=== PATIENT | male | born 1955 | race Caucasian/White ===

== ENCOUNTER 2021-02-25 12:43 | Emergency (ER) | payer MEDICARE ==
--- NOTE | 2021-02-25 13:33 | EDM.PDOC ---
ED HPI GENERAL MEDICAL PROBLEM - General Chief Complaint: Respiratory Problem Stated Complaint: SOB Time Seen by Provider: 02/25/21 12:53 Source of Information: Reports: Patient History Limitations: Reports: No Limitations - History of Present Illness INITIAL COMMENTS - FREE TEXT/NARRATIVE: 65-year-old male presents the emergency department today requesting of a refill of his albuterol rescue inhaler. Patient recently moved here from [facility]. Significant history of COPD and is oxygen dependent on 4 L per nasal cannula. He states he is set up to see Dr. Boateng the clinic 2 days from now however due to the fact that he has not seen him yet as a provider he is unable to have Dr. Boateng fill his albuterol prescription. Patient denies any recent fever, chills, nausea, vomiting or diarrhea. He denies any other respiratory symptoms such as cough or sore throat. 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 Respiratory History: Reports: COPD Other Respiratory History: stage 3 Musculoskeletal History: Reports: Arthritis, Back Pain, Chronic, Osteoarthritis, Osteoporosis Psychiatric History: Reports: Anxiety, Depression Endocrine/Metabolic History: Reports: Diabetes, Type II - Infectious Disease History Infectious Disease History: Reports: C-Difficile, Measles, Mumps - Past Surgical History GI Surgical History: Reports: Appendectomy, Colonoscopy Social & Family History - Tobacco Use Tobacco Use Status *Q: Former Tobacco User Used Tobacco, but Quit: Yes Month/Year Tobacco Last Used: 2017 - Caffeine Use Caffeine Use: Reports: Coffee - Recreational Drug Use Recreational Drug Use: No ED ROS GENERAL - Review of Systems Review Of Systems: Comprehensive ROS is negative, except as noted in HPI. ED EXAM, GENERAL - Physical Exam Exam: See Below Exam Limited By: No Limitations General Appearance: Alert, WD/WN, No Apparent Distress Ears: Normal External Exam, Hearing Grossly Normal Nose: Normal Inspection Throat/Mouth: Normal Inspection, Normal Lips, Normal Voice, No Airway Compromise Head: Atraumatic, Normocephalic Neck: Normal Inspection, Supple Respiratory/Chest: No Respiratory Distress, Lungs Clear, Normal Breath Sounds, No Accessory Muscle Use, Chest Non-Tender Cardiovascular: Normal Peripheral Pulses, Regular Rate, Rhythm, No Edema, No Murmur Peripheral Pulses: 2+: Radial (L), Radial (R) GI/Abdominal: Normal Bowel Sounds, Soft, Non-Tender, No Distention (Male) Exam: Deferred Rectal (Males) Exam: Deferred Back Exam: CVA Tenderness (R) Extremities: Normal Inspection Neurological: Alert, Oriented, Normal Cognition Psychiatric: Normal Affect, Normal Mood Skin Exam: Warm, Dry, Intact, Normal Color, No Rash Lymphatic: No Adenopathy Course - Vital Signs Text/Narrative:: As stated above, patient presents requesting a refill of his albuterol rescue inhaler. Physical exam is essentially unremarkable. He is currently on oxygen at 4 L per nasal cannula with O2 saturations at 98%. Will refill patient's albuterol nebulizer and sent a prescription electronically. Last Recorded V/S: Last Vital Signs Temp 97.8 F 02/25/21 13:09 Pulse 80 02/25/21 13:09 Resp 20 02/25/21 13:09 BP 112/68 02/25/21 13:09 Pulse Ox 98 02/25/21 13:09 Departure - Departure Time of Disposition: 13:31 Disposition: Home, Self-Care 01 Condition: Good Clinical Impression: Encounter for medication refill - Discharge Information Prescriptions: Albuterol [Ventolin HFA] 1 puff INH QID #1 gm Referrals: Urban Wharton MD [Primary Care Provider] - Additional Instructions: You were seen in the emergency department today requesting a refill of your albuterol rescue inhaler. A prescription has been sent to [facility] for refill of this prescription. Follow-up with Dr. Boateng as scheduled. Sepsis Event Note (ED) - Focused Exam Vital Signs: Vital Signs Temp Pulse Resp BP Pulse Ox 02/25/21 13:09 97.8 F 80 20 112/68 98
== END 2021-02-25 13:43 | disposition home or self-care (01) ==
LOC: JD.ED 12:43
DX: J44.9 Chronic obstructive pulmonary disease, unspecified (principal); Z76.0 Encounter for issue of repeat prescription; I10 Essential (primary) hypertension; I48.92 Unspecified atrial flutter; E11.9 Type 2 diabetes mellitus without complications; Z87.891 Personal history of nicotine dependence; Z88.8 Allergy status to other drugs, medicaments and biological substances; Z79.899 Other long term (current) drug therapy
CPT/HCPCS: 99281; 99283

== ENCOUNTER 2021-08-06 21:11 | Emergency (ER) | payer MEDICARE, OTHER ==
[2021-08-06] MEDS ORDERED: methylPREDNISolone Sodium Succinate 125 MG/2 ML SDV IVPUSH ONE (22:00)
[2021-08-06] MEDS ORDERED: Albuterol/Ipratropium 3.0-0.5 MG/3 ML Neb Soln NEB ONE ×2 (22:00→23:09)
[2021-08-06] MEDS ORDERED: Magnesium Sulfate/Water 2 GM in Premix Bag 1 BAG IV ONE (23:09)
== END 2021-08-07 01:38 | disposition home or self-care (01) ==
LOC: JD.ED 21:11
DX: J44.1 Chronic obstructive pulmonary disease with (acute) exacerbation (principal); I48.91 Unspecified atrial fibrillation; J96.01 Acute respiratory failure with hypoxia; E83.42 Hypomagnesemia; I10 Essential (primary) hypertension; E11.9 Type 2 diabetes mellitus without complications; Z88.1 Allergy status to other antibiotic agents
CPT/HCPCS: 36415; 71045; 80053; 83735; 85025; 85610; 93005; 94640; 96365; 96366; 96375; 99285; J2930; J3475; 93010; 99291; J7620-GY

== ENCOUNTER 2021-08-07 21:16 | Inpatient (IN) | payer MEDICARE, OTHER ==
[2021-08-07] MEDS ORDERED: Sodium Chloride 0.9% 1,000 ML IV ONE (22:11)
[2021-08-07] MEDS ORDERED: Cefepime 2 GM in Sodium Chloride 0.9% 50 ML IV ONE (22:12)
[2021-08-07] MEDS ORDERED: Sodium Chloride 0.9% 50 ML ONE (22:37)
[2021-08-07] MEDS ORDERED: Cefepime 2 GM Vial ONE (22:37)
[2021-08-07] MEDS ORDERED: Furosemide 40 MG/4 ML VIAL IVPUSH ONE (22:45)
[2021-08-08] MEDS ORDERED: Warfarin 5 MG Tab PO ONE (01:16)
[2021-08-08] MEDS ORDERED: predniSONE 20 MG Tab PO ONE (01:16)
[2021-08-08] MEDS ORDERED: metFORMIN 500 MG Tab PO ONE (01:20)
[2021-08-08] MEDS ORDERED: Cefepime 2 GM in Sodium Chloride 0.9% 50 ML IV ONE (06:00)
[2021-08-08] MEDS ORDERED: Sodium Chloride 0.9% 50 ML ONE (06:02)
[2021-08-08] MEDS ORDERED: Morphine 2 MG/ML SYRINGE IVPUSH PRN (06:36)
[2021-08-08] MEDS ORDERED: Temazepam 7.5 MG Cap PO PRN (06:36)
[2021-08-08] MEDS ORDERED: oxyCODONE 5 MG Tab PO PRN (06:36)
[2021-08-08] MEDS ORDERED: Docusate Sodium 100 MG Cap PO PRN (06:36)
[2021-08-08] MEDS ORDERED: Heparin Sodium 5,000 Units/ML Vial SUBCUT SCH (06:45)
[2021-08-08] MEDS ORDERED: predniSONE 20 MG Tab PO SCH (07:00)
[2021-08-08 08:05] LABS: HEMOGLOBIN A1C 5.8 %
[2021-08-08] MEDS: cefTRIAXone 2 GM in Sodium Chloride 0.9% 100 ML IV SCH (08:52)
[2021-08-08] MEDS: Potassium Bicarbonate/Cit Ac 20 MEQ Effervescent Tab PO SCH (08:57)
[2021-08-08] MEDS ORDERED: Insulin Regular, Human 100 Units/ML 3 ML Vial SUBCUT SCH (09:00)
[2021-08-08] MEDS: Gabapentin 300 MG Cap PO SCH ×3 (09:00→21:31)
[2021-08-08] MEDS: cloNIDine 0.1 MG Tab PO SCH (09:01)
[2021-08-08] MEDS: Chlorthalidone 25 MG Tab PO SCH (09:01)
[2021-08-08] MEDS: Diltiazem 240 MG Cap.ER PO SCH (09:02)
[2021-08-08] MEDS: predniSONE 20 MG Tab PO SCH ×2 (09:03→16:53)
[2021-08-08] MEDS: Fluticasone NASAL Spray 16 GM Bottle NASBOTH SCH (09:07)
[2021-08-08] MEDS ORDERED: Albuterol/Ipratropium 3.0-0.5 MG/3 ML Neb Soln NEB PRN (12:00)
[2021-08-08] MEDS: Tiotropium Bromide 4 GM Inhalation Spray (2.5mcg/1 dose; 10 doses) INH SCH (12:26)
[2021-08-08] MEDS: Formoterol/Mometasone 200-5 MCG 8.8 GM Inhaler IH SCH ×2 (12:26→20:49)
[2021-08-08] MEDS: guaiFENesin 600 MG Tab.ER PO SCH ×2 (15:53→21:31)
[2021-08-08] MEDS ORDERED: ALPRAZolam 0.5 MG Tab PO ONE (16:30)
[2021-08-08] MEDS: metFORMIN 500 MG Tab PO SCH (16:53)
[2021-08-08] MEDS: Albuterol/Ipratropium 3.0-0.5 MG/3 ML Neb Soln NEB PRN ×2 (17:48→20:52)
[2021-08-08] MEDS: Warfarin 5 MG Tab PO SCH (19:07)
[2021-08-09] MEDS: Albuterol/Ipratropium 3.0-0.5 MG/3 ML Neb Soln NEB PRN (09:00)
[2021-08-09] MEDS: Tiotropium Bromide 4 GM Inhalation Spray (2.5mcg/1 dose; 10 doses) INH SCH (09:00)
[2021-08-09] MEDS: Formoterol/Mometasone 200-5 MCG 8.8 GM Inhaler IH SCH ×2 (09:01→21:23)
[2021-08-09] MEDS: LORazepam 1 MG Tab PO PRN ×2 (09:14→20:39)
[2021-08-09] MEDS: Acetylcysteine 20% 200 MG/ML 4 ML Nebulizer Soln SDV NEB SCH ×2 (09:23→17:24)
[2021-08-09] MEDS: cefTRIAXone 2 GM in Sodium Chloride 0.9% 100 ML IV SCH (09:52)
[2021-08-09] MEDS: guaiFENesin 600 MG Tab.ER PO SCH ×3 (09:53→20:39)
[2021-08-09] MEDS: Diltiazem 240 MG Cap.ER PO SCH (09:53)
[2021-08-09] MEDS: cloNIDine 0.1 MG Tab PO SCH (09:53)
[2021-08-09] MEDS: Chlorthalidone 25 MG Tab PO SCH (09:53)
[2021-08-09] MEDS: predniSONE 20 MG Tab PO SCH ×2 (09:53→18:17)
[2021-08-09] MEDS: Potassium Bicarbonate/Cit Ac 20 MEQ Effervescent Tab PO SCH (09:53)
[2021-08-09] MEDS: Gabapentin 300 MG Cap PO SCH ×3 (09:53→20:39)
[2021-08-09] MEDS: Fluticasone NASAL Spray 16 GM Bottle NASBOTH SCH (09:54)
[2021-08-09] MEDS: Levalbuterol HCl 1.25 MG/3 ML Neb NEB SCH ×3 (13:24→21:21)
[2021-08-09] MEDS: Warfarin 5 MG Tab PO SCH (18:16)
[2021-08-09] MEDS: metFORMIN 500 MG Tab PO SCH (18:16)
[2021-08-10] MEDS: Levalbuterol HCl 1.25 MG/3 ML Neb NEB SCH ×6 (02:19→21:22)
[2021-08-10] MEDS: Acetylcysteine 20% 200 MG/ML 4 ML Nebulizer Soln SDV NEB SCH ×2 (05:49→17:36)
[2021-08-10] MEDS: predniSONE 20 MG Tab PO SCH ×2 (06:29→18:12)
[2021-08-10] MEDS: cefTRIAXone 2 GM in Sodium Chloride 0.9% 100 ML IV SCH (09:08)
[2021-08-10] MEDS: Chlorthalidone 25 MG Tab PO SCH (09:09)
[2021-08-10] MEDS: cloNIDine 0.1 MG Tab PO SCH (09:10)
[2021-08-10] MEDS: Gabapentin 300 MG Cap PO SCH ×3 (09:10→20:08)
[2021-08-10] MEDS: Potassium Bicarbonate/Cit Ac 20 MEQ Effervescent Tab PO SCH (09:10)
[2021-08-10] MEDS: guaiFENesin 600 MG Tab.ER PO SCH ×3 (09:12→20:08)
[2021-08-10] MEDS: Fluticasone NASAL Spray 16 GM Bottle NASBOTH SCH (09:12)
[2021-08-10] MEDS: Diltiazem 240 MG Cap.ER PO SCH (09:12)
[2021-08-10] MEDS: LORazepam 1 MG Tab PO PRN ×2 (09:29→20:07)
[2021-08-10] MEDS: Formoterol/Mometasone 200-5 MCG 8.8 GM Inhaler IH SCH ×2 (09:47→21:22)
[2021-08-10] MEDS: Tiotropium Bromide 4 GM Inhalation Spray (2.5mcg/1 dose; 10 doses) INH SCH (09:47)
[2021-08-10] MEDS: metFORMIN 500 MG Tab PO SCH (18:12)
[2021-08-10] MEDS: Warfarin 5 MG Tab PO SCH (18:15)
[2021-08-11] MEDS: Levalbuterol HCl 1.25 MG/3 ML Neb NEB SCH ×4 (01:59→14:32)
[2021-08-11] MEDS: Acetylcysteine 20% 200 MG/ML 4 ML Nebulizer Soln SDV NEB SCH (06:20)
[2021-08-11] MEDS: predniSONE 20 MG Tab PO SCH ×2 (06:55→18:10)
[2021-08-11] MEDS: Potassium Bicarbonate/Cit Ac 20 MEQ Effervescent Tab PO SCH (08:15)
[2021-08-11] MEDS: cefTRIAXone 2 GM in Sodium Chloride 0.9% 100 ML IV SCH (08:16)
[2021-08-11] MEDS: guaiFENesin 600 MG Tab.ER PO SCH ×2 (08:18→14:55)
[2021-08-11] MEDS: Gabapentin 300 MG Cap PO SCH ×2 (08:18→14:55)
[2021-08-11] MEDS: Diltiazem 240 MG Cap.ER PO SCH (08:18)
[2021-08-11] MEDS: Chlorthalidone 25 MG Tab PO SCH (08:18)
[2021-08-11] MEDS: LORazepam 1 MG Tab PO PRN (08:27)
[2021-08-11] MEDS: cloNIDine 0.1 MG Tab PO SCH (08:29)
[2021-08-11] MEDS: Formoterol/Mometasone 200-5 MCG 8.8 GM Inhaler IH SCH (09:30)
[2021-08-11] MEDS: Tiotropium Bromide 4 GM Inhalation Spray (2.5mcg/1 dose; 10 doses) INH SCH (09:30)
[2021-08-11] MEDS ORDERED: Diltiazem 120 MG Cap.CD PO ONE (09:46)
[2021-08-11] MEDS: Fluticasone NASAL Spray 16 GM Bottle NASBOTH SCH (09:57)
[2021-08-11] MEDS: metFORMIN 500 MG Tab PO SCH (18:10)
== END 2021-08-11 16:50 | disposition home or self-care (01) | DRG 193 ==
LOC: JD.ED 21:16 → JD.MS 23:06
PROVIDERS: ADMIT Internal Medicine; ATTEND Internal Medicine
DX: J18.9 Pneumonia, unspecified organism (principal); J96.21 Acute and chronic respiratory failure with hypoxia; J44.0 Chronic obstructive pulmonary disease with (acute) lower respiratory infection; R00.2 Palpitations; I48.91 Unspecified atrial fibrillation; I48.21 Permanent atrial fibrillation; J44.1 Chronic obstructive pulmonary disease with (acute) exacerbation; I10 Essential (primary) hypertension; G47.30 Sleep apnea, unspecified; F41.9 Anxiety disorder, unspecified; G89.29 Other chronic pain; M54.9 Dorsalgia, unspecified; I48.92 Unspecified atrial flutter; M81.0 Age-related osteoporosis without current pathological fracture; M19.90 Unspecified osteoarthritis, unspecified site; Z20.822 Contact with and (suspected) exposure to COVID-19; F32.A Depression, unspecified; F43.10 Post-traumatic stress disorder, unspecified; E66.9 Obesity, unspecified; F41.8 Other specified anxiety disorders; E11.9 Type 2 diabetes mellitus without complications; Z88.1 Allergy status to other antibiotic agents; Z90.49 Acquired absence of other specified parts of digestive tract; Z98.49 Cataract extraction status, unspecified eye; Z87.891 Personal history of nicotine dependence; Z79.01 Long term (current) use of anticoagulants; Z79.52 Long term (current) use of systemic steroids; Z79.899 Other long term (current) drug therapy; Z79.4 Long term (current) use of insulin; Z68.29 Body mass index [BMI] 29.0-29.9, adult
CPT/HCPCS: 36415; 71045; 80053; 83605; 83735; 83880; 84484; 85025; 87040 ×2; 93005; 96374; 99285; J0692; J7030; U0002; 82947; 83036; 85610; 94640; 94660; 94667; 94668; 94761; 99222; 99232; A9270-GY; J0696; J1815-GY; J1940; J7512; J7612-GY; J7620-GY

== ENCOUNTER 2021-08-30 21:29 | Emergency (ER) | payer MEDICARE, OTHER ==
[2021-08-30] MEDS ORDERED: Diltiazem 50 MG/10 ML SDV IVPUSH STA (22:07)
[2021-08-30] MEDS ORDERED: Diltiazem 100 MG in Sodium Chloride 0.9% 100 ML IV SCH (22:15)
[2021-08-30] MEDS ORDERED: Warfarin 7.5 MG Tab PO ONE (22:48)
[2021-08-31] MEDS ORDERED: Diltiazem 100 MG in Sodium Chloride 0.9% 100 ML IV SCH (06:45)
[2021-08-31] MEDS ORDERED: LORazepam 0.5 MG Tab PO ONE (07:35)
== END 2021-08-31 08:44 ==
LOC: JD.ED 21:29
DX: I48.91 Unspecified atrial fibrillation (principal); D68.8 Other specified coagulation defects; J44.9 Chronic obstructive pulmonary disease, unspecified; I10 Essential (primary) hypertension; E11.9 Type 2 diabetes mellitus without complications; E66.9 Obesity, unspecified; Z68.30 Body mass index [BMI] 30.0-30.9, adult; Z87.891 Personal history of nicotine dependence; Z90.49 Acquired absence of other specified parts of digestive tract; Z79.899 Other long term (current) drug therapy; Z79.01 Long term (current) use of anticoagulants; Z79.84 Long term (current) use of oral hypoglycemic drugs; Z88.1 Allergy status to other antibiotic agents
CPT/HCPCS: 36415; 71045; 80053; 83735; 83880; 84443; 85025; 85610; 93005; 94660; 96365; 96366; 99285; A9270; J3490; 93010; 99284

== ENCOUNTER 2022-11-28 13:58 | Emergency (ER) | payer MEDICARE, OTHER ==
[2022-11-28 14:52] LABS: BASOPHILS ABSOLUTE AUTO 0.05 K/mm3 (0.01-0.08); BASOPHILS PERCENT AUTO 0.5 % (0.1-1.2); HEMATOCRIT 39.2 % (40.1-51.0); HEMOGLOBIN 12.8 gm/dl (13.7-17.5); IMMATURE GRAN ABSOLUTE AUTO 0.03 K/mm3 (0.00-0.10); IMMATURE GRAN PERCENT AUTO 0.3 % (<=1.0); LYMPHOCYTES ABSOLUTE AUTO 2.54 K/mm3 (1.32-3.57); LYMPHOCYTES PERCENT AUTO 23.1 % (21.8-53.1); MEAN CORPUSCULAR HGB CONC 32.7 g/dl (32.2-35.5); MEAN PLATELET VOLUME 10.9 fl (9.4-12.3); MONOCYTES ABSOLUTE AUTO 0.73 K/mm3 (0.30-0.82); MONOCYTES PERCENT AUTO 6.6 % (5.3-12.2); NEUTROPHILS ABSOLUTE AUTO 6.56 K/mm3 (1.78-5.38); NEUTROPHILS PERCENT AUTO 59.5 % (34.0-67.9); PLATELET COUNT,PLT 200 K/mm3 (163-337); WHITE BLOOD CELL COUNT,WBC 11.01 K/mm3 (4.23-9.07)
[2022-11-28 15:43] LABS: A/G RATIO 0.8 (1-2); ALBUMIN 3.3 g/dl (3.4-5.0); ANION GAP 13.9 (5-15); BILIRUBIN TOTAL 0.4 mg/dL (0.2-1.0); BUN/CREATININE RATIO 13.6 (14-18); CALCIUM 8.5 mg/dL (8.5-10.1); CREATININE 1.1 mg/dL (0.7-1.3); EST CRCL DRUG DOSING (CG) 2.35 mL/min; POTASSIUM,K 3.9 mEq/L (3.5-5.1); PROTEIN TOTAL,TP 7.6 g/dl (6.4-8.2)
== END 2022-11-28 16:38 | disposition home or self-care (01) ==
LOC: JD.ED 13:58
DX: S61.402A Unspecified open wound of left hand, initial encounter (principal); I48.91 Unspecified atrial fibrillation; I10 Essential (primary) hypertension; E11.9 Type 2 diabetes mellitus without complications; E66.9 Obesity, unspecified; Z88.1 Allergy status to other antibiotic agents; Z68.1 Body mass index [BMI] 19.9 or less, adult; Z79.01 Long term (current) use of anticoagulants; Z79.84 Long term (current) use of oral hypoglycemic drugs; W18.09XA Striking against other object with subsequent fall, initial encounter
CPT/HCPCS: 36415; 70450; 70450-26; 80053; 84484; 85025; 93005; 93010; 99283; 99284

== ENCOUNTER 2023-08-01 18:41 | Emergency (ER) | payer MEDICARE, OTHER ==
[2023-08-01] MEDS: HYDROmorphone 0.5 MG/0.5 ML Syringe IVPUSH ONE ×3 (19:14→21:34)
[2023-08-01] MEDS: Sodium Chloride 0.9% 10 ML Syringe FLUSH PRN (19:15)
[2023-08-01] MEDS: Ondansetron 4 MG Tab.DIS PO ONE (21:59)
== END 2023-08-01 22:00 | disposition home or self-care (01) ==
LOC: JD.ED 18:41
DX: S42.201A Unspecified fracture of upper end of right humerus, initial encounter for closed fracture (principal); J44.9 Chronic obstructive pulmonary disease, unspecified; I10 Essential (primary) hypertension; I48.91 Unspecified atrial fibrillation; E11.9 Type 2 diabetes mellitus without complications; E66.9 Obesity, unspecified; Z79.899 Other long term (current) drug therapy; Z79.84 Long term (current) use of oral hypoglycemic drugs; Z88.1 Allergy status to other antibiotic agents; W01.0XXA Fall on same level from slipping, tripping and stumbling without subsequent striking against object, initial encounter
CPT/HCPCS: 73030; 73200; 96374; 96376; 99284; A9270; J1170; J3490